=== PATIENT | male | born 1965 | race Caucasian/White ===

== ENCOUNTER 2021-12-17 11:51 | Inpatient (IN) | payer OTHER ==
[2021-12-17 12:52] VITALS: BMI 30.5
[2021-12-17] MEDS ORDERED: IBUPROFEN 400 MG TABLET (FP) PO PRN (13:23)
[2021-12-17] MEDS ORDERED: MAGNESIUM HYDROX 2400MG/30ML ORAL SUSPENSION 30 ML CUP PO PRN (13:23)
[2021-12-17] MEDS ORDERED: BENZOCAINE/MENTHOL (CHLORASEPTIC ) LOZENGE MM PRN (13:23)
[2021-12-17] MEDS ORDERED: METHOCARBAMOL 500 MG TABLET PO PRN (13:23)
[2021-12-17] MEDS ORDERED: DICYCLOMINE HCL 10 MG CAPSULE PO PRN (13:23)
[2021-12-17] MEDS ORDERED: IBUPROFEN 600 MG TABLET (FP) PO PRN (13:23)
[2021-12-17] MEDS ORDERED: NICOTINE 10 MG CARTRIDGE (INHALER) IH PRN (13:23)
[2021-12-17] MEDS ORDERED: chlordiazePOXIDE HCL 25 MG CAPSULE PO PRN (13:23)
[2021-12-17] MEDS ORDERED: ONDANSETRON *ODT* 4 MG TABLET SL PRN (13:23)
[2021-12-17] MEDS ORDERED: MAGNESIUM CITRATE 300 ML BOTTLE PO PRN (13:23)
[2021-12-17] MEDS ORDERED: LOPERAMIDE HCL 2 MG CAPSULE PO PRN (13:23)
[2021-12-17] MEDS ORDERED: MAG HYDROX/AL HYDROX/SIMETH 30 ML UNIT-DOSE CUP PO PRN (13:23)
[2021-12-17] MEDS ORDERED: BISMUTH SUBSALICYLATE 524 MG/30 ML PO PRN (13:23)
[2021-12-17] MEDS ORDERED: ACETAMINOPHEN 325 MG TABLET (FP) PO PRN ×2 (13:23)
[2021-12-17] MEDS ORDERED: NALOXONE HCL (KLOXXADO) 8 MG SPRAY NS PRN (13:23)
[2021-12-17] MEDS: hydrOXYzine PAMOATE 25 MG CAPSULE (FP) PO SCH ×3 (14:20→23:19)
[2021-12-17] MEDS: chlordiazePOXIDE HCL 25 MG CAPSULE PO SCH ×2 (18:04→23:18)
[2021-12-17] MEDS: MELATONIN 5 MG TABLETS PO SCH (23:19)
[2021-12-17] MEDS: THIAMINE HCL 100 MG TABLET (FP) PO SCH (23:19)
[2021-12-18] MEDS: hydrOXYzine PAMOATE 25 MG CAPSULE (FP) PO SCH ×2 (06:42→10:33)
[2021-12-18] MEDS: chlordiazePOXIDE HCL 25 MG CAPSULE PO SCH ×2 (06:42→10:33)
[2021-12-18] MEDS: PRENATAL VITAMINS W/ FOLIC ACID TABLET (FP) PO SCH (10:33)
[2021-12-18 10:48] LABS: CALCIUM 8.8 mg/dL (8.5-10.1)
[2021-12-18 10:49] LABS: ALBUMIN 3.4 g/dl (3.4-5.0)
[2021-12-18 10:50] LABS: HEMATOCRIT 40.8 % (35.4-49); HEMOGLOBIN 13.2 GM/dL (11.7-16.9); MCH 29.7 pg (25.7-33.7); MCHC 32.5 g/dl (32.0-35.9); MEAN CELL VOLUME 91.5 fl (80-96); MEAN PLT VOLUME 8.8 fl (7.5-11.1); PLATELET COUNT 276 10^3/uL (134-434); RBC 4.46 M/mm3 (4.00-5.60); RDW 14.6 % (11.9-15.9); WHITE BLOOD COUNT 5.4 K/mm3 (4.0-10.0)
[2021-12-18 10:53] LABS: CREATININE 0.8 mg/dL (0.55-1.3)
[2021-12-18 10:54] LABS: BILIRUBIN,TOTAL 0.4 mg/dL (0.2-1); TOT PROT 6.8 g/dl (6.4-8.2)
[2021-12-18] MEDS: chlordiazePOXIDE HCL 10 MG CAPSULE PO SCH ×2 (18:25→22:23)
[2021-12-18] MEDS: THIAMINE HCL 100 MG TABLET (FP) PO SCH (22:23)
[2021-12-18] MEDS: MELATONIN 5 MG TABLETS PO SCH (22:30)
[2021-12-19] MEDS ORDERED: chlordiazePOXIDE HCL 25 MG CAPSULE PO SCH (05:00)
[2021-12-19] MEDS: hydrOXYzine PAMOATE 25 MG CAPSULE (FP) PO PRN (10:21)
[2021-12-19] MEDS: PRENATAL VITAMINS W/ FOLIC ACID TABLET (FP) PO SCH (10:21)
[2021-12-19] MEDS: chlordiazePOXIDE 5 MG CAPSULE PO SCH ×2 (10:26→18:32)
[2021-12-20] MEDS ORDERED: chlordiazePOXIDE HCL 10 MG CAPSULE PO PRN
[2021-12-20] MEDS: MELATONIN 5 MG TABLETS PO SCH ×2 (00:42→22:33)
[2021-12-20] MEDS: THIAMINE HCL 100 MG TABLET (FP) PO SCH ×2 (00:42→22:31)
[2021-12-20] MEDS: chlordiazePOXIDE 5 MG CAPSULE PO SCH ×4 (00:42→22:31)
[2021-12-20] MEDS ORDERED: chlordiazePOXIDE HCL 10 MG CAPSULE PO SCH (05:00)
[2021-12-20] MEDS: PRENATAL VITAMINS W/ FOLIC ACID TABLET (FP) PO SCH (10:49)
[2021-12-20] MEDS: hydrOXYzine PAMOATE 25 MG CAPSULE (FP) PO PRN (13:09)
[2021-12-21] MEDS ORDERED: chlordiazePOXIDE HCL 10 MG CAPSULE PO SCH (05:00)
[2021-12-21] MEDS: chlordiazePOXIDE 5 MG CAPSULE PO SCH ×2 (05:25→17:49)
[2021-12-21] MEDS: PRENATAL VITAMINS W/ FOLIC ACID TABLET (FP) PO SCH (10:16)
[2021-12-21] MEDS: THIAMINE HCL 100 MG TABLET (FP) PO SCH (23:36)
[2021-12-21] MEDS: MELATONIN 5 MG TABLETS PO SCH (23:36)
[2021-12-22] MEDS ORDERED: chlordiazePOXIDE 5 MG CAPSULE PO ONE (05:00)
[2021-12-22] MEDS ORDERED: chlordiazePOXIDE HCL 10 MG CAPSULE PO ONE (05:00)
[2021-12-22 09:34] VITALS: TEMP 97.7
[2021-12-22] MEDS: PRENATAL VITAMINS W/ FOLIC ACID TABLET (FP) PO SCH (10:51)
[2021-12-22 13:09] VITALS: BP 101/55; PULSE 67; RESP 18
[2021-12-22 18:52] LABS: URINE APPEARANCE CLEAR; URINE BILIRUBIN NEGATIVE (NEGATIVE); URINE COLOR YELLOW; URINE GLUCOSE (UA) NEGATIVE (NEGATIVE); URINE KETONE NEGATIVE (NEGATIVE); URINE LEUK ESTERASE NEGATIVE (NEGATIVE); URINE NITRITE NEGATIVE (NEGATIVE); URINE PROTEIN NEGATIVE (NEGATIVE); URINE UROBILINOGEN 0.2 mg/dL (0.2-1.0)
== END 2021-12-22 13:10 | disposition other institution (70) | DRG 775 ==
LOC: YASAS 11:51 → SUATTDRO 11:51 → Y6N 13:57
PROVIDERS: ADMIT Allergy & Immunology; ATTEND Surgery
PROC: HZ2ZZZZ Detoxification Services for Substance Abuse Treatment (ICD-10-PCS; principal; 2021-12-17)
DX: F10.230 Alcohol dependence with withdrawal, uncomplicated (principal); E86.0 Dehydration; Z56.0 Unemployment, unspecified; Z59.00 Homelessness unspecified
CPT/HCPCS: 36415; 80053; 81003; 82962; 85027; 86780; 87811; 93005; 93010; C9803-CS; U0003; U0005

== ENCOUNTER 2021-12-22 13:21 | Inpatient (IN) | payer OTHER ==
[2021-12-22] MEDS ORDERED: IBUPROFEN 400 MG TABLET (FP) PO PRN (14:29)
[2021-12-22] MEDS ORDERED: LOPERAMIDE HCL 2 MG CAPSULE PO PRN (14:29)
[2021-12-22] MEDS ORDERED: MAG HYDROX/AL HYDROX/SIMETH 30 ML UNIT-DOSE CUP PO PRN (14:29)
[2021-12-22] MEDS ORDERED: NICOTINE 10 MG CARTRIDGE (INHALER) IH PRN (14:29)
[2021-12-22] MEDS ORDERED: P-EPHED 60MG/TRIPROLIDI 2.5MG TABLET PO PRN (14:29)
[2021-12-22] MEDS ORDERED: guaiFENesin 200 MG/10 ML 10 ML UNIT-DOSE CUPS PO PRN (14:29)
[2021-12-22] MEDS ORDERED: NICOTINE POLACRILEX 4 MG GUM BUC PRN (14:29)
[2021-12-22] MEDS ORDERED: ACETAMINOPHEN 325 MG TABLET (FP) PO PRN (14:29)
[2021-12-22] MEDS ORDERED: MAGNESIUM CITRATE 300 ML BOTTLE PO PRN (14:29)
[2021-12-22] MEDS ORDERED: hydrOXYzine PAMOATE 25 MG CAPSULE (FP) PO PRN (14:29)
[2021-12-22] MEDS ORDERED: MAGNESIUM HYDROX 2400MG/30ML ORAL SUSPENSION 30 ML CUP PO PRN (14:29)
[2021-12-22] MEDS ORDERED: NICOTINE 7 MG/24 HOURS TOPICAL PATCH TD PRN (14:32)
[2021-12-22] MEDS: THIAMINE HCL 100 MG TABLET (FP) PO SCH (21:15)
[2021-12-22] MEDS: MELATONIN 5 MG TABLETS PO SCH (21:15)
[2021-12-23] MEDS ORDERED: NICOTINE 7 MG/24 HOURS TOPICAL PATCH TD SCH (10:00)
[2021-12-23] MEDS: PRENATAL VITAMINS W/ FOLIC ACID TABLET (FP) PO SCH (10:03)
[2021-12-23] MEDS: MELATONIN 5 MG TABLETS PO SCH (21:08)
[2021-12-23] MEDS: THIAMINE HCL 100 MG TABLET (FP) PO SCH (21:08)
[2021-12-24] MEDS: PRENATAL VITAMINS W/ FOLIC ACID TABLET (FP) PO SCH (10:17)
[2021-12-24] MEDS: THIAMINE HCL 100 MG TABLET (FP) PO SCH (21:11)
[2021-12-24] MEDS: MELATONIN 5 MG TABLETS PO SCH (21:11)
[2021-12-25] MEDS: PRENATAL VITAMINS W/ FOLIC ACID TABLET (FP) PO SCH (09:42)
[2021-12-25] MEDS: THIAMINE HCL 100 MG TABLET (FP) PO SCH (21:23)
[2021-12-25] MEDS: MELATONIN 5 MG TABLETS PO SCH (21:23)
[2021-12-26] MEDS: PRENATAL VITAMINS W/ FOLIC ACID TABLET (FP) PO SCH (09:52)
[2021-12-26] MEDS: MELATONIN 5 MG TABLETS PO SCH (21:13)
[2021-12-26] MEDS: THIAMINE HCL 100 MG TABLET (FP) PO SCH (21:13)
[2021-12-27] MEDS: PRENATAL VITAMINS W/ FOLIC ACID TABLET (FP) PO SCH (09:28)
[2021-12-27] MEDS: THIAMINE HCL 100 MG TABLET (FP) PO SCH (21:07)
[2021-12-27] MEDS: MELATONIN 5 MG TABLETS PO SCH (21:08)
[2021-12-28] MEDS: PRENATAL VITAMINS W/ FOLIC ACID TABLET (FP) PO SCH (10:20)
[2021-12-28] MEDS: THIAMINE HCL 100 MG TABLET (FP) PO SCH (21:27)
[2021-12-28] MEDS: MELATONIN 5 MG TABLETS PO SCH (21:27)
[2021-12-29] MEDS: PRENATAL VITAMINS W/ FOLIC ACID TABLET (FP) PO SCH (10:55)
[2021-12-29] MEDS: MELATONIN 5 MG TABLETS PO SCH (21:30)
[2021-12-29] MEDS: THIAMINE HCL 100 MG TABLET (FP) PO SCH (21:30)
[2021-12-30] MEDS: PRENATAL VITAMINS W/ FOLIC ACID TABLET (FP) PO SCH (10:37)
[2021-12-30] MEDS: THIAMINE HCL 100 MG TABLET (FP) PO SCH (21:21)
[2021-12-30] MEDS: MELATONIN 5 MG TABLETS PO SCH (21:21)
[2021-12-31] MEDS: PRENATAL VITAMINS W/ FOLIC ACID TABLET (FP) PO SCH (09:42)
[2021-12-31] MEDS: MELATONIN 5 MG TABLETS PO SCH (21:08)
[2021-12-31] MEDS: THIAMINE HCL 100 MG TABLET (FP) PO SCH (21:08)
[2022-01-01] MEDS: PRENATAL VITAMINS W/ FOLIC ACID TABLET (FP) PO SCH (10:16)
[2022-01-01] MEDS: MELATONIN 5 MG TABLETS PO SCH (21:12)
[2022-01-01] MEDS: THIAMINE HCL 100 MG TABLET (FP) PO SCH (21:12)
[2022-01-02 06:47] VITALS: RESP 18
[2022-01-02] MEDS: PRENATAL VITAMINS W/ FOLIC ACID TABLET (FP) PO SCH (09:42)
[2022-01-02] MEDS: MELATONIN 5 MG TABLETS PO SCH (21:06)
[2022-01-02] MEDS: THIAMINE HCL 100 MG TABLET (FP) PO SCH (21:06)
[2022-01-03 06:30] VITALS: BP 143/76; PULSE 68; TEMP 98.9
== END 2022-01-03 09:21 | disposition home or self-care (01) | DRG 772 ==
LOC: YASAS 13:21 → Y3W 13:22
PROVIDERS: ADMIT Allergy & Immunology; ATTEND Psychiatry & Neurology Pain Medicine
PROC: HZ42ZZZ Group Counseling for Substance Abuse Treatment, Cognitive-Behavioral (ICD-10-PCS; principal; 2021-12-22)
DX: F10.20 Alcohol dependence, uncomplicated (principal); Z59.00 Homelessness unspecified; Z56.0 Unemployment, unspecified
CPT/HCPCS: 36415; 86803